=== PATIENT | female | born 1930 | race Caucasian/White ===

== ENCOUNTER 2019-02-20 14:06 | Inpatient (IN) ==
[2019-02-20] MEDS ORDERED: METOPROLOL TARTRATE 1 MG/ML VIAL IV STA (14:28)
--- NOTE | 2019-02-20 14:37 | Emergency Department Note ---
Entered by Janelle Randall acting as a scribe for History of Present Illness General Chief complaint: Chest Pain Stated complaint: CHEST PAIN Time Seen by Provider: 02/20/19 14:10 History of Present Illness Provider complaint: chest pain Onset (ago): hour(s) 8 Location: chest, left and right Radiation: non-radiation Pain Consistency: + now resolved Maximum Pain Intensity: 0 Associated symptoms: + denies other symptoms (lightheaded, dizzy) and + other (pain woke her up from sleep, pain is shooting between her anterior bilateral shoulders, lasted for 1 hour, pain has not returned since); no shortness of breath Treatments prior to arrival: none The patient is an 88 year old female who presents to the ED with now resolved chest pain that occurred 8 hours ago. The patient states that the pain woke her up from her sleep at 0630 this morning. The patient states that her pain is shooting between her anterior bilateral shoulders. The patient notes that the pain is non-radiating. The patient states that this pain lasted for approximately 1 hour. The patient states that the pain went away on its own and she denies taking any medication. The patient also denies feeling lightheaded, dizzy and short of breath during this episode. The patient states that she has been relaxing ever since this episode and the pain never returned. Home Medications Home Medications Medication Instructions Recorded Confirmed Type allopurinol 300 mg PO QAM 02/20/19 02/20/19 History apixaban [Eliquis] 2.5 mg PO BID 02/20/19 02/20/19 History calcitriol 0.25 mcg PO 3XWK 02/20/19 02/20/19 History digoxin 125 mcg PO QAM 02/20/19 02/20/19 History furosemide 20 mg PO QAM 02/20/19 02/20/19 History hydrochlorothiazide 25 mg PO QAM 02/20/19 02/20/19 History hydrocodone-acetaminophen 1 tab PO Q6H PRN 02/20/19 02/20/19 History ibuprofen [Motrin IB] 200 mg PO Q6H PRN 02/20/19 02/20/19 History metoprolol succinate 25 mg PO HS 02/20/19 02/20/19 History potassium chloride 20 meq PO 3XWK 02/20/19 02/20/19 History Allergies Allergy/AdvReac Type Severity Reaction Status Date / Time atorvastatin Allergy Unknown makes arms Verified 02/20/19 14:49 and shoulders hurt Past Med/Surg History Medical History (Updated 02/20/19 @ 15:34 by Janelle Randall) Atrial fibrillation (Chronic) CKD (chronic kidney disease) stage 4, GFR 15-29 ml/min (Chronic) Dyslipidemia (Chronic) GERD (gastroesophageal reflux disease) (Chronic) Gout (Chronic) Hip hematoma, right (Acute) History of DVT of lower extremity (Chronic) Hypertension (Chronic) Inguinal hernia (Chronic) Lymphedema of both lower extremities (Acute) Osteoarthritis (Chronic) Shoulder pain, right (Acute) Venous insufficiency (Chronic) Surgical History (Updated 02/20/19 @ 14:15 by Janelle Randall) S/P cataract surgery (Chronic) "bilateral" S/P ear surgery (Chronic) S/P inguinal hernia repair (Chronic) Social History Feels Safe at Home: Yes Smoking Status: Never smoker Review of Systems See HPI for pertinent positives & negatives. and A total of 10 systems reviewed and were otherwise negative Physical Exam Vital Signs Vital Signs - 24 hr 02/20/19 14:08 02/20/19 14:20 02/20/19 14:23 Temperature 36.8 C Temperature Source Oral Pulse Rate 113 H 105 H 110 H Pulse Rate [Apical] Pulse Rate from SpO2 Sensor 109 H 101 H Respiratory Rate 18 19 18 Respiratory Depth Blood Pressure 163/79 H 177/121 H Blood Pressure [Left Arm] Blood Pressure Mean 107 133 Blood Pressure Mean [Left Arm] Pulse Oximetry 98 97 97 Oxygen Delivery Method Room Air Sepsis Recent Fever Within 48 Hours No Sepsis Action Taken by Nursing No Action Required 02/20/19 14:24 02/20/19 14:26 02/20/19 14:27 Temperature Temperature Source Pulse Rate 106 H Pulse Rate [Apical] 100 H Pulse Rate from SpO2 Sensor 115 H Respiratory Rate 20 20 Respiratory Depth Normal Blood Pressure 169/109 H Blood Pressure [Left Arm] 169/109 H Blood Pressure Mean 126 Blood Pressure Mean [Left Arm] 129 Pulse Oximetry 96 97 97 Oxygen Delivery Method Room Air Room Air Sepsis Recent Fever Within 48 Hours Sepsis Action Taken by Nursing 02/20/19 14:30 02/20/19 14:31 02/20/19 14:45 Temperature Temperature Source Pulse Rate 91 H 87 90 Pulse Rate [Apical] Pulse Rate from SpO2 Sensor 97 H 94 H 98 H Respiratory Rate 18 18 20 Respiratory Depth Blood Pressure 163/107 H Blood Pressure [Left Arm] Blood Pressure Mean 116 Blood Pressure Mean [Left Arm] Pulse Oximetry 98 96 Oxygen Delivery Method Sepsis Recent Fever Within 48 Hours Sepsis Action Taken by Nursing 02/20/19 14:50 02/20/19 14:51 02/20/19 15:00 Temperature Temperature Source Pulse Rate 67 71 Pulse Rate [Apical] 72 Pulse Rate from SpO2 Sensor 70 Respiratory Rate 20 22 19 Respiratory Depth Normal Blood Pressure 147/79 H Blood Pressure [Left Arm] 147/79 H Blood Pressure Mean 91 Blood Pressure Mean [Left Arm] 101 Pulse Oximetry 94 96 Oxygen Delivery Method Room Air Sepsis Recent Fever Within 48 Hours Sepsis Action Taken by Nursing 02/20/19 15:01 02/20/19 15:15 02/20/19 15:31 Temperature Temperature Source Pulse Rate 80 63 Pulse Rate [Apical] Pulse Rate from SpO2 Sensor Respiratory Rate 17 16 Respiratory Depth Blood Pressure 145/82 H Blood Pressure [Left Arm] 139/87 Blood Pressure Mean 94 Blood Pressure Mean [Left Arm] 104 Pulse Oximetry Oxygen Delivery Method Sepsis Recent Fever Within 48 Hours Sepsis Action Taken by Nursing CONSTITUTIONAL/VITAL SIGNS: Reviewed / noted above. GENERAL: Non-toxic in appearance. INTEGUMENTARY: Warm, dry, and [place]. HEAD: Normocephalic. EYES: without scleral icterus or trauma. ENT/OROPHARYNX: clear and moist. LYMPHADENOPATHY/NECK: Is supple without lymphadenopathy or meningismus. RESPIRATORY: Lungs clear and equal. CARDIOVASCULAR: Irregular rapid heart rate. GI/ABDOMEN: Soft and nontender. No organomegaly or pulsatile mass. No rebound or guarding. Normal bowel sounds. EXTREMITIES: Warm and well perfused. Chronic pedal edema. BACK: No CVA tenderness. NEUROLOGICAL: Intact without focal deficits. PSYCHIATRIC: normal affect. MUSCULOSKELETAL: Normally developed with good muscle tone. Course Course 1416: Past medical records reviewed. The patient was evaluated in room A03. A complete history and physical exam was performed. 1527: I discussed the patient's case with Dara Ramirez PA-C. She will accept the patient and evaluate her for further management. Consultations Consultation #1: I discussed the patient's case with Dara Ramirez PA-C. She will accept the patient and evaluate her for further management. Time: 15:27 Administered Medications Discontinued Medications Aspirin (Aspirin) 324 mg PO NOW STA Stop: 02/20/19 15:27 Last Admin: 02/20/19 15:30 Dose: 324 mg Documented by: [id number] Enoxaparin Sodium (Lovenox) 60 mg SQ NOW ONE Stop: 02/20/19 15:27 Last Admin: 02/20/19 15:33 Dose: Not Given Documented by: [id number] Metoprolol Tartrate (Lopressor) 5 mg IV NOW STA Stop: 02/20/19 14:29 Last Admin: 02/20/19 14:48 Dose: 5 mg Documented by: [id number] Medical Decision Making Differential Diagnosis Differential diagnosis: Etiologies such as shingles, musculoskeletal pain, pericarditis, myocarditis, cardiac ischemia, pericardial tamponade, pneumonia, pneumothorax, pleural effusion, hemothorax, pleurisy, aortic pathology, pulmonary embolism, intra- abdominal process, as well as others were considered. Medical Records Attestation: I reviewed the patient's medical records. Home Medications Current Medication List: was personally reviewed by me Laboratory Data Attestation: I reviewed the patient's lab results. Result diagrams: 02/20/19 14:35 02/20/19 14:35 Lab Results 02/20/19 02/20/19 02/20/19 Range/Units 14:35 14:35 14:35 WBC 6.53 (4.8-10.8) K/uL RBC 3.44 L (4.2-5.4) M/uL Hgb 10.9 L (12.0-16.0) g/dL Hct 33.8 L (37-47) % MCV 98.3 (80-100) fL MCH 31.7 (25-34) pg MCHC 32.2 (32-36) g/dL RDW Std Deviation 53.7 H (36.4-46.3) fL RDW Coeff of Luke 14.9 H (11.5-14.5) % Plt Count 294 (130-400) K/uL MPV 10.0 (7.4-10.4) fL Immature Gran % (Auto) 0.2 % Neut % (Auto) 59.4 % Lymph % (Auto) 30.8 % Louisa % (Auto) 8.1 % Eos % (Auto) 1.2 % Baso % (Auto) 0.3 % Immature Gran # (Auto) 0.01 (0.00-0.02) K/uL Neut # (Auto) 3.88 (1.4-6.5) K/uL Lymph # (Auto) 2.01 (1.2-3.4) K/uL Louisa # (Auto) 0.53 (0.11-0.59) K/uL Eos # (Auto) 0.08 (0-0.5) K/uL Baso # (Auto) 0.02 (0-0.2) K/uL Sodium 142 (136-145) mmol/L Potassium 3.5 (3.5-5.1) mmol/L Chloride 106 (98-107) mmol/L Carbon Dioxide 30 (21-32) mmol/L Anion Gap 6.0 (3-11) BUN 24 H (7-18) mg/dl Creatinine 1.37 H (0.6-1.2) mg/dl Est Cr Clr Drug Dosing 25.5 ml/min Est GFR ( Amer) 39.8 Est GFR (Non-Af Amer) 34.4 BUN/Creatinine Ratio 17.3 (10-20) Glucose 92 (70-99) mg/dl Calcium 10.1 (8.5-10.1) mg/dl Total Bilirubin 0.4 (0.2-1) mg/dl AST 28 (15-37) U/L ALT 19 (12-78) U/L Alkaline Phosphatase 104 (45-117) U/L Troponin I 2.560 H* (0-0.045) ng/ml Total Protein 7.3 (6.4-8.2) gm/dl Albumin 3.6 (3.4-5.0) gm/dl Globulin 3.7 (2.5-4.0) gm/dl Albumin/Globulin Ratio 1.0 (0.9-2) Lipase 130 (73-393) U/L Digoxin 1.5 (0.8-2.0) ng/ml Imaging Data Radiologist's Impression: Radiology results as stated below per my review and the radiologist's interpretation: SINGLE VIEW CHEST CLINICAL HISTORY: Atypical chest pain. FINDINGS: An AP, portable, upright chest radiograph is compared to study dated 12/21/2015. The examination is degraded by portable technique and patient rotation. The heart is enlarged. The pulmonary vasculature is noncongested. A large hiatal hernia is noted. Chronic interstitial thickening is similar to previous. Scarring/atelectasis is noted at the lung bases. No airspace consolidation or large pleural effusion is identified. No pneumothorax is seen. The skeletal structures are osteopenic. The bony thorax is grossly intact. Advanced arthritic change is present in both shoulders. Superior subluxation of the humeral heads suggest chronic rotator cuff injuries. Calcific tendinopathy is noted bilaterally. Degenerative change is seen in the thoracic spine. IMPRESSION: 1. Cardiomegaly with no acute cardiopulmonary abnormality. 2. Large hiatal hernia. Electronically signed by: Chaka Serrano M.D. 02/20/2019 2:41 PM ECG Data Attestation: I personally reviewed and interpreted this ECG as follows: Indication: + chest pain Rate (beats per minute): 98 Rhythm: + atrial flutter ECG ST segments: no ST elevation ECG Findings: no PACs and no PVCs Blood Pressure Blood Pressure Findings: Elevated blood pressure Blood Pressure Disposition: further management by hospitalist FARHAT Narrative This is an 88-year-old female who presents to the ED with a chief complaint of a steady severe pain that went from shoulder to shoulder across the anterior chest at 630 this morning. She states that it awoke her from sleep. She states that it lasted for about an hour or so. Did not radiate into the back. She denied any associated symptoms like nausea, vomiting, diaphoresis, shortness of breath, lightheadedness or palpitations. She did not do anything for the symptoms but it resolved spontaneously. Her family was made aware and they brought her in for evaluation. She is currently having no symptoms. She does have a history of A. fib. She is reportedly on Xarelto. The patient has a slightly rapid and irregular heart rate ranging from 100-130. A twelve-lead EKG shows atrial flutter with variable conduction at rate of [address] elevation or ectopy. The patient's troponin came up elevated 2.5. Chest x-ray was negative for acute disease. BUN is 24 and creatinine is 1.37. CBC is unremarkable. The patient was given 5 mg of Lopressor IV. She will be treated with aspirin p.o. she is currently on Eliquis. I spoke with the hospitalist, who will see the patient for further inpatient evaluation and care. Impression & Plan Non-ST elevation VA (NSTEMI) Discharge Plan Visit Data Chief Complaint: Chest Pain Stated Complaint: CHEST PAIN ED Provider: Shemar Bourne Discharge Problem: Non-ST elevation VA (NSTEMI) Patient Disposition: Being Evaluated by Hospitalist Forms Stand Alone Forms: [facility] Prescriptions Prescriptions: No Action hydrocodone-acetaminophen 10-325 mg tablet 1 tab PO Q6H PRN (Reason: Pain) RF: 0 potassium chloride 20 mEq tablet,ER particles/crystals 20 meq PO 3XWK RF: 0 ibuprofen [Motrin IB] 200 mg Tablet 200 mg PO Q6H PRN (Reason: Pain) RF: 0 allopurinol 300 mg tablet 300 mg PO QAM RF: 0 hydrochlorothiazide 25 mg tablet 25 mg PO QAM RF: 0 digoxin 125 mcg (0.125 mg) tablet 125 mcg PO QAM RF: 0 furosemide 20 mg tablet 20 mg PO QAM RF: 0 metoprolol succinate 25 mg tablet extended release 24 hr 25 mg PO HS RF: 0 calcitriol 0.25 mcg capsule 0.25 mcg PO 3XWK RF: 0 Eliquis 2.5 mg tablet 2.5 mg PO BID RF: 0 Referrals Referrals: Jhony Littlejohn MD [Primary Care Provider] - The scribe's documentation has been prepared under my direction and personally reviewed by me in its entirety. I confirm that the note above accurately reflects all work, treatment, procedures, and medical decision making performed by me.
--- NOTE | 2019-02-20 14:42 | XRay Report ---
SINGLE VIEW CHEST CLINICAL HISTORY: Atypical chest pain. FINDINGS: An AP, portable, upright chest radiograph is compared to study dated 12/21/2015. The examina tion is degraded by portable technique and patient rotation. The heart is enlarged. The pulmonary vas culature is noncongested. A large hiatal hernia is noted. Chronic interstitial thickening is similar to previous. Scarring/atelectasis is noted at the lung bases. No airspace consolidation or large pleu ral effusion is identified. No pneumothorax is seen. The skeletal structures are osteopenic. The bony thorax is grossly intact. Advanced arthritic change is present in both shoulders. Superior subluxati on of the humeral heads suggest chronic rotator cuff injuries. Calcific tendinopathy is noted bilater ally. Degenerative change is seen in the thoracic spine. IMPRESSION: 1. Cardiomegaly with no acute cardiopulmonary abnormality. 2. Large hiatal hernia. Electronically signed by: Chaka Serrano M.D. 02/20/2019 2:41 PM
[2019-02-20 14:50] LABS: Basophils # (auto) 0.02 K/uL (0-0.2); Basophils % (auto) 0.3 %; Eosinophils # (auto) 0.08 K/uL (0-0.5); Eosinophils % (auto) 1.2 %; Hematocrit (blood only) 33.8 % (37-47); Hemoglobin 10.9 g/dL (12.0-16.0); Immature Granulocytes # (auto) 0.01 K/uL (0.00-0.02); Immature Granulocytes % (auto) 0.2 %; Lymphocytes # (auto) 2.01 K/uL (1.2-3.4); Lymphocytes % (auto) 30.8 %; Mean Corpuscular Hemoglobin 31.7 pg (25-34); Mean Corpuscular Hgb Conc 32.2 g/dL (32-36); Mean Corpuscular Volume 98.3 fL (80-100); Monocytes # (auto) 0.53 K/uL (0.11-0.59); Monocytes % (auto) 8.1 %; Neutrophils # (auto) 3.88 K/uL (1.4-6.5); Neutrophils % (auto) 59.4 %; Platelet Count 294 K/uL (130-400); RDW Coefficient of Variation 14.9 % (11.5-14.5); RDW Standard Deviation 53.7 fL (36.4-46.3); Red Blood Count 3.44 M/uL (4.2-5.4); White Blood Count 6.53 K/uL (4.8-10.8)
[2019-02-20 15:06] LABS: Albumin Level 3.6 gm/dl (3.4-5.0); BUN Creatinine Ratio 17.3 (10-20); Calcium 10.1 mg/dl (8.5-10.1); Creatinine Clr Calc Pharmacy 25.5 ml/min; Est GFR (African American) 39.8; Est GFR (Non-African American) 34.4; Potassium 3.5 mmol/L (3.5-5.1)
[2019-02-20 15:14] LABS: Bilirubin,Total 0.4 mg/dl (0.2-1); Globulin 3.7 gm/dl (2.5-4.0); Total Protein 7.3 gm/dl (6.4-8.2); Troponin I 2.56 ng/ml (0-0.045)
[2019-02-20] MEDS ORDERED: ASPIRIN CHEW 324 MG PO STA (15:26)
[2019-02-20] MEDS ORDERED: ENOXAPARIN INJ 60 MG/0.6 ML SYR SQ ONE (15:26)
[2019-02-20] MEDS ORDERED: Heparin IV Standard *NO* Bolus IV ONE (16:13)
--- NOTE | 2019-02-20 16:39 | History & Physical Report ---
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 In ED patient was significantly hypertensive with BP 169/109, tachycardic with heart rate 113, but otherwise hemodynamically stable. ECG revealed atrial flutter with variable AV block with nonspecific st wave changes. Initial troponin 2.5, stable H&H 10.9 and 33.8, platelet 294, BUN 24, creatinine 1.37, dig 1.5. Chest x-ray revealed large hiatal hernia but no cardiopulmonary abnormality. In ED she received ASA 325. Admit to PCU Stop Eliquis and start on IV heparin gtt cardiology consulted - spoke with Dr. Leggett obtain echocardiogram cycle troponin and ecg restart metoprolol tartrate 12.5mg bid lipid panel, a1c in a.m. (2) Atrial fibrillation: Patient with chronic rate controlled atrial fibrillation asymptomatic Presented with a flutter RVR Rates improved with Lopressor IV 5 mg Dig level WNL Continue digoxin Restart metoprolol at low-dose 12.5 mg twice daily Repeat ECG Cardiology consulted (3) Hypertension: Blood pressure now improved to 139/87 Hold HCTZ/Lasix for now Consider Nitropaste if BP elevates recently JUAN A d/c due to increase Cr and hyperkalemia (4) CKD (chronic kidney disease) stage 4, GFR 15-29 ml/min: baseline cr 1.5 bun/cr 24/1.37 avoid nephrotoxic agents, including NSAIDS monitor (5) Dyslipidemia: Continue statin Fasting lipid panel in a.m. (6) Gout: Continue allopurinol Patient with gouty arthropathy (7) Lymphedema of both lower extremities: Significant lower extremity lymphedema Teds, SCDs (8) DVT prophylaxis: IV heparin SCD/teds Disposition: Admit to PCU Follow-up: PCP Dr. Littlejohn upon discharge Patient was seen and examined in collaboration with Dr. 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 Son, [id number] and granddaughter are at bedside. She was awoken from sleep with stabbing substernal and left-sided chest pain, nonradiating, nothing made better, nothing made worse, /, never had anything like this in the past, "if it got any worse was going to jump out the window." "I think I had a heart attack." She denies any recent illness. Denies any associated shortness of breath, palpitations, diaphoresis or nausea. She denies any dizziness, lightheaded, syncope, hemoptysis, nausea, vomiting, diarrhea, change in her bowel or urinary habits. She does have chronic lower extremity lymphedema which she feels currently is worse. Normally her left lower extremity is worse than the right lower extremity; however, currently it is the opposite. She does have pain in her lower extremity secondary to arthritis which makes ambulating difficult. She does live at home alone. Denies any smoking or alcohol use. Occasional use of NSAIDs for pain relief. Family elicits she is a poor eater. Has had significant weight loss over the past 6 months to 1 year. Because of this and her weight loss her blood pressure has been running on the lower side and some medications have been discontinued. Recently seen by nephrology and her lisinopril and potassium segments were discontinued secondary to increased renal function and potassium. In ED patient was significantly hypertensive with BP 169/109, tachycardic with heart rate 113, but otherwise hemodynamically stable. ECG revealed atrial flutter with variable AV block with nonspecific st wave changes. Initial troponin 2.5, stable H&H 10.9 and 33.8, platelet 294, BUN 24, creatinine 1.37, dig 1.5. Chest x-ray revealed large hiatal hernia but no cardiopulmonary abnormality. In ED she received ASA 325. Allergies Allergy/AdvReac Type Severity Reaction Status Date / Time atorvastatin Allergy Unknown makes arms Verified 02/20/19 14:49 and shoulders hurt Home Medications Home Medications Medication Instructions Recorded Confirmed Type allopurinol 300 mg PO QAM 02/20/19 02/20/19 History apixaban [Eliquis] 2.5 mg PO BID 02/20/19 02/20/19 History calcitriol 0.25 mcg PO 3XWK 02/20/19 02/20/19 History digoxin 125 mcg PO QAM 02/20/19 02/20/19 History furosemide 20 mg PO QAM 02/20/19 02/20/19 History hydrochlorothiazide 25 mg PO QAM 02/20/19 02/20/19 History hydrocodone-acetaminophen 1 tab PO Q6H PRN 02/20/19 02/20/19 History ibuprofen [Motrin IB] 200 mg PO Q6H PRN 02/20/19 02/20/19 History Past Med/Surg History Social History Preferred Language: Cymraes Communication Ability: Effective Receiving Barn Custodian Required: No Beliefs That Will Affect Care: None Current Living Situation: Alone Other Information That Helps Us Care for You: No Feels Safe at Home: Yes Safety Concerns: Feels Safe At This Time Smoking Status: Never smoker Hx Alcohol Use: Yes Alcohol type: wine Hx Substance Use: No Review of Systems Review of Systems: All systems reviewed & are unremarkable except as noted in HPI & below Physical Exam Physical Exam: Constitutional: WD/WN, elderly, female vitals as above, NAD, sitting up in bed, pleasant, conversing easily Head: Normocephalic, Atraumatic Eyes: PERRL, conjunctivae normal, anicteric sclerae ENMT: external ear and nose normal, oropharynx normal Neck: trachea midline, no thyromegaly normal visual inspection Respiratory: normal respiratory effort, lungs clear to auscultation, no wheeze, rales, rhonchi. Normal insp/exp effort, no accessory muscle use Cardiovascular: Regular rate, irregular rhythm, no murmur, bilateral significant lymphedema, no erythema, warmth, negative Homans sign Vessels: no JVD or carotid bruit Chest: normal inspection of chest Abdomen: normal bowel sounds, soft, nontender, no hepatosplenomegaly Musculoskeletal: no cyanosis or clubbing, extremities motor strength 5/5 Skin: no rashes, warm and dry normal turgor Neurologic: PERRL, EOMI, accommodation nl, no face palsy, no dysarthria CN's II-XI intact bilaterally and moves all extremities Psychiatric: A+Ox3, euthymic affect Lymphatic: no cervical or axillary lymphadenopathy : deferred Results & Data Vital Signs (Past 12 Hours) Vital Signs Temp Pulse Pulse Resp BP BP Pulse Ox 02/20/19 15:31 139/87 02/20/19 15:15 63 16 02/20/19 15:01 80 17 145/82 H 02/20/19 15:00 71 19 02/20/19 14:51 72 22 147/79 H 96 02/20/19 14:50 67 20 147/79 H 94 02/20/19 14:45 90 20 96 02/20/19 14:31 87 18 98 02/20/19 14:30 91 H 18 163/107 H 02/20/19 14:27 97 02/20/19 14:26 100 H 20 169/109 H 97 02/20/19 14:24 106 H 20 169/109 H 96 02/20/19 14:23 110 H 18 97 02/20/19 14:20 105 H 19 177/121 H 97 02/20/19 14:08 36.8 C 113 H 18 163/79 H 98 Laboratory Results Short CBC 02/20/19 Range/Units 14:35 WBC 6.53 (4.8-10.8) K/uL Hgb 10.9 L (12.0-16.0) g/dL Hct 33.8 L (37-47) % Plt Count 294 (130-400) K/uL BMP 02/20/19 14:35 Sodium 142 Potassium 3.5 Chloride 106 Carbon Dioxide 30 BUN 24 H Creatinine 1.37 H Glucose 92 Calcium 10.1 Cardiac Enzymes 02/20/19 Range/Units 14:35 Troponin I 2.560 H* (0-0.045) ng/ml Liver Function 02/20/19 Range/Units 14:35 Total Bilirubin 0.4 (0.2-1) mg/dl AST 28 (15-37) U/L ALT 19 (12-78) U/L Alkaline Phosphatase 104 (45-117) U/L Albumin 3.6 (3.4-5.0) gm/dl Diagnostic Findings CXR:IMPRESSION: 1. Cardiomegaly with no acute cardiopulmonary abnormality. 2. Large hiatal hernia. Medications Administered Discontinued Medications Aspirin (Aspirin) 324 mg PO NOW STA Stop: 02/20/19 15:27 Last Admin: 02/20/19 15:30 Dose: 324 mg Documented by: [id number] Enoxaparin Sodium (Lovenox) 60 mg SQ NOW ONE Stop: 02/20/19 15:27 Last Admin: 02/20/19 15:33 Dose: Not Given Documented by: [id number] Metoprolol Tartrate (Lopressor) 5 mg IV NOW STA Stop: 02/20/19 14:29 Last Admin: 02/20/19 14:48 Dose: 5 mg Documented by: [id number] ECG Rate (beats per minute): 98 Rhythm: atrial flutter Findings: + nonspecific-ST abn Code Status & VTE Plan Code Status Full Code VTE Prophylaxis Plan VTE Prophylaxis will be ordered: Yes Supervising Physician Co-Signing Physician Notes Patient is an 88-year-old female with history of CKD 4, atrial fibrillation hyperparathyroidism and other problems presents with history of substernal chest pain, nonradiating, no aggravating or relieving factors. Please review HPI for complete details of presentation. On presentation, patient was noted to have hypertensive urgency, atrial flutter with RVR, elevated troponin 2.5. TSH, digoxin levels within normal limits. On exam patient is moderately built and nourished, no apparent distress, normocephalic atraumatic, lungs are clear to auscultation, irregularly irregular rhythm, no murmur, abdomen soft nontender, grossly no focal neurological deficits, bilateral lower extremity significant lymphedema. Patient is admitted for management of NSTEMI. Will hold Eliquis and start on IV heparin. Will start on low-dose metoprolol, trend troponin, check ECHO. Continue digoxin. Cardiology consulted. Received aspirin while in ED. Check lipid panel, A1c. N.p.o. after midnight. Currently heart rate is controlled, rhythm is A. fib. Anemia and CKD are at baseline. I personally reviewed the record. Patient is interviewed and examined at bedside. Patient's care is coordinated with Daniela Roa PA-C. Please refer to the documentation above for details of patient's presentation and for discussion of other issues.
[2019-02-20 17:05] LABS: Thyroid Stimulating Hormone 3.08 uIu/ml (0.300-4.500)
[2019-02-20] MEDS ORDERED: NITROGLYCERIN SL 0.4 MG/TAB TAB SL PRN (17:54)
[2019-02-20] MEDS ORDERED: ACETAMINOPHEN 325 MG TAB PO PRN (17:54)
[2019-02-20] MEDS ORDERED: ONDANSETRON INJ 2 MG/ML 2 ML VIAL IV PRN (17:54)
[2019-02-20] MEDS ORDERED: METOPROLOL TARTRATE 1 MG/ML VIAL IV PRN (17:54)
[2019-02-20 18:51] LABS: Prothrombin Time 10.5 Seconds (9.0-12.0)
[2019-02-20 19:26] LABS: Partial Thromboplastin Time 26.4 Seconds (21.0-31.0)
[2019-02-20] MEDS: HEPARIN SODIUM/DEXTROSE 25,000 UNITS/500 ML BAG IV SCH (19:40)
[2019-02-20] MEDS: METOPROLOL TARTRATE 25 MG TAB PO SCH (21:13)
[2019-02-21] MEDS: HYDROCODONE/ACETAMINOPHEN 10/325 TAB PO PRN ×3 (01:37→20:17)
[2019-02-21 02:41] LABS: INR 1.1 (0.9-1.1); Partial Thromboplastin Ratio 1.8; Prothrombin Time 10.8 Seconds (9.0-12.0)
[2019-02-21 02:42] LABS: Troponin I 2.46 ng/ml (0-0.045)
[2019-02-21 03:04] LABS: Partial Thromboplastin Time 49.1 Seconds (21.0-31.0)
[2019-02-21 06:03] LABS: Partial Thromboplastin Ratio 2.1
[2019-02-21 06:26] LABS: Partial Thromboplastin Time 56.8 Seconds (21.0-31.0)
[2019-02-21] MEDS: METOPROLOL TARTRATE 25 MG TAB PO SCH ×3 (08:17→20:11)
[2019-02-21] MEDS: ALLOPURINOL 300 MG TAB PO SCH (08:18)
--- NOTE | 2019-02-21 09:33 | Cardiology Consultation ---
Date of Consultation February 21, 2019 Assessment & Plan (1) CKD (chronic kidney disease) stage 4, GFR 15-29 ml/min: (2) Atrial fibrillation: (3) Troponin level elevated: (4) Non-ST elevation [place] (NSTEMI): The patient is currently comfortable. She had chest pain for approximately an hour which spontaneously resolved. Her initial cardiac troponins were elevated and have not really risen or declined. She does have chronic renal insufficiency which could be contributing to the elevation in troponin. At this point I believe we are either dealing with a type II elevation of troponin versus a non-STEMI. I would continue her on heparin. I have added aspirin 81 mg daily. I believe a conservative approach to this patient is indicated. Continue the metoprolol at the present dosage. She has chronic atrial fibrillation/flutter. History of Present Illness Attending Physician: Dunia Delarosa MD History of Present Illness This is an 88-year-old elderly female who usually follows with Dr. Valenzuela with a history of chronic atrial fibrillation. She was last seen in March at which time she was doing well. Yesterday she was in her usual state of health and went to move from her recliner. She noticed chest discomfort that started in the right side and radiated over to her left that lasted for approximately an hour before spontaneously resolving. She came to the emergency department where she was noted to have elevated cardiac markers and has been admitted. Since admission she has had no additional chest pain. She does have chronic kidney disease stage IV and her biomarkers have remained consistently elevated pretty much at the same elevation and therefore may be influenced by her kidney disease. She denies shortness of breath. She has had no dizziness or lightheadedness. She is in atrial fibrillation/flutter with a controlled rate on the telemetry. Allergies Allergy/AdvReac Type Severity Reaction Status Date / Time atorvastatin Allergy Unknown makes arms Verified 02/20/19 14:49 and shoulders hurt Home Medications Home Medications Medication Instructions Recorded Confirmed Type allopurinol 300 mg PO QAM 02/20/19 02/20/19 History apixaban [Eliquis] 2.5 mg PO BID 02/20/19 02/20/19 History calcitriol 0.25 mcg PO 3XWK 02/20/19 02/20/19 History digoxin 125 mcg PO QAM 02/20/19 02/20/19 History furosemide 20 mg PO QAM 02/20/19 02/20/19 History hydrochlorothiazide 25 mg PO QAM 02/20/19 02/20/19 History hydrocodone-acetaminophen 1 tab PO Q6H PRN 02/20/19 02/20/19 History ibuprofen [Motrin IB] 200 mg PO Q6H PRN 02/20/19 02/20/19 History Patient History Medical History Atrial fibrillation (Chronic) CKD (chronic kidney disease) stage 4, GFR 15-29 ml/min (Chronic) Dyslipidemia (Chronic) GERD (gastroesophageal reflux disease) (Chronic) Gout (Chronic) History of DVT of lower extremity (Chronic) Hypertension (Chronic) Lymphedema of both lower extremities (Acute) Osteoarthritis (Chronic) Venous insufficiency (Chronic) Surgical History History of hip surgery S/P cataract surgery (Chronic) "bilateral" S/P ear surgery (Chronic) S/P inguinal hernia repair (Chronic) Family History Brother Hypertension Social History Preferred Language: Japanese Communication Ability: Effective Auto Rebuilder Required: No Beliefs That Will Affect Care: None Current Living Situation: Alone Other Information That Helps Us Care for You: No Feels Safe at Home: Yes Safety Concerns: Feels Safe At This Time Smoking Status: Never smoker Hx Alcohol Use: Yes Alcohol type: wine Hx Substance Use: No Review of Systems Review of Systems: All systems reviewed & are unremarkable except as noted in HPI & below Nothing additional to add Physical Exam Physical Exam: General: no acute distress and stated age Head: normocephalic, no masses, lesions, tenderness or abnormalities Eyes: conjunctiva are pink and non-injected, sclera clear Neck: supple, no adenopathy, no bruits, normal jugular venous pulse, no hepatojugular reflux Chest: normal shape and normal respiratory effort Lungs: clear to auscultation and percussion Cardiac Exam: - irregular rate & rhythm, no murmurs gallops or rubs - normal S1, normal S2 Pulses: 2(+) throughout Abdomen: abdomen soft, non-tender, no abnormal masses and no hepatosplenomegaly Musculoskeletal: no gait disturbance, no joint inflammation, no deforming arthritis Extremities: no edema and no cyanosis Neuro: grossly normal exam Results & Data Vital Signs (Past 12 Hours) Vital Signs Temp Pulse Pulse Resp BP BP Pulse Ox 02/21/19 07:09 36.7 C 68 19 163/77 H 97 02/21/19 04:47 36.7 C 67 18 164/77 H 99 02/21/19 00:49 36.9 C 65 18 146/78 H 94 02/21/19 00:00 77 Laboratory Results Laboratory Results - last 24 hr 02/20/19 02/20/19 02/20/19 14:35 14:35 14:35 WBC 6.53 RBC 3.44 L Hgb 10.9 L Hct 33.8 L MCV 98.3 MCH 31.7 MCHC 32.2 RDW Std Deviation 53.7 H RDW Coeff of Luke 14.9 H Plt Count 294 MPV 10.0 Immature Gran % (Auto) 0.2 Neut % (Auto) 59.4 Lymph % (Auto) 30.8 [place] % (Auto) 8.1 Eos % (Auto) 1.2 Baso % (Auto) 0.3 Immature Gran # (Auto) 0.01 Neut # (Auto) 3.88 Lymph # (Auto) 2.01 [place] # (Auto) 0.53 Eos # (Auto) 0.08 Baso # (Auto) 0.02 PT INR APTT PTT Ratio Sodium 142 Potassium 3.5 Chloride 106 Carbon Dioxide 30 Anion Gap 6.0 BUN 24 H Creatinine 1.37 H Est Cr Clr Drug Dosing 25.5 Est GFR ( Amer) 39.8 Est GFR (Non-Af Amer) 34.4 BUN/Creatinine Ratio 17.3 Glucose 92 Estimat Average Glucose Hemoglobin A1c Calcium 10.1 Total Bilirubin 0.4 AST 28 ALT 19 Alkaline Phosphatase 104 Troponin I 2.560 H* Total Protein 7.3 Albumin 3.6 Globulin 3.7 Albumin/Globulin Ratio 1.0 Triglycerides Cholesterol LDL Cholesterol, Calc VLDL Cholesterol, Calc HDL Cholesterol Cholesterol/HDL Ratio Lipase 130 TSH 3.080 Digoxin 1.5 02/20/19 02/20/19 02/20/19 14:35 14:35 19:49 WBC RBC Hgb Hct MCV MCH MCHC RDW Std Deviation RDW Coeff of Luke Plt Count MPV Immature Gran % (Auto) Neut % (Auto) Lymph % (Auto) [place] % (Auto) Eos % (Auto) Baso % (Auto) Immature Gran # (Auto) Neut # (Auto) Lymph # (Auto) [place] # (Auto) Eos # (Auto) Baso # (Auto) PT 10.5 INR 1.0 APTT 26.4 PTT Ratio 1.0 Sodium Potassium Chloride Carbon Dioxide Anion Gap BUN Creatinine Est Cr Clr Drug Dosing Est GFR ( Amer) Est GFR (Non-Af Amer) BUN/Creatinine Ratio Glucose Estimat Average Glucose Hemoglobin A1c Calcium Total Bilirubin AST ALT Alkaline Phosphatase Troponin I 3.000 H* Total Protein Albumin Globulin Albumin/Globulin Ratio Triglycerides Cholesterol LDL Cholesterol, Calc VLDL Cholesterol, Calc HDL Cholesterol Cholesterol/HDL Ratio Lipase TSH Digoxin 02/21/19 02/21/19 02/21/19 01:48 01:48 05:24 WBC RBC Hgb Hct MCV MCH MCHC RDW Std Deviation RDW Coeff of Luke Plt Count MPV Immature Gran % (Auto) Neut % (Auto) Lymph % (Auto) [place] % (Auto) Eos % (Auto) Baso % (Auto) Immature Gran # (Auto) Neut # (Auto) Lymph # (Auto) [place] # (Auto) Eos # (Auto) Baso # (Auto) PT 10.8 INR 1.1 APTT 49.1 H* 56.8 H* PTT Ratio 1.8 2.1 Sodium Potassium Chloride Carbon Dioxide Anion Gap BUN Creatinine Est Cr Clr Drug Dosing Est GFR ( Amer) Est GFR (Non-Af Amer) BUN/Creatinine Ratio Glucose Estimat Average Glucose Hemoglobin A1c Calcium Total Bilirubin AST ALT Alkaline Phosphatase Troponin I 2.460 H* Total Protein Albumin Globulin Albumin/Globulin Ratio Triglycerides 120 Cholesterol 185 LDL Cholesterol, Calc 93 VLDL Cholesterol, Calc 24 HDL Cholesterol 68 Cholesterol/HDL Ratio 3 Lipase TSH Digoxin 02/21/19 05:24 WBC RBC Hgb Hct MCV MCH MCHC RDW Std Deviation RDW Coeff of Luke Plt Count MPV Immature Gran % (Auto) Neut % (Auto) Lymph % (Auto) [place] % (Auto) Eos % (Auto) Baso % (Auto) Immature Gran # (Auto) Neut # (Auto) Lymph # (Auto) [place] # (Auto) Eos # (Auto) Baso # (Auto) PT INR APTT PTT Ratio Sodium Potassium Chloride Carbon Dioxide Anion Gap BUN Creatinine Est Cr Clr Drug Dosing Est GFR ( Amer) Est GFR (Non-Af Amer) BUN/Creatinine Ratio Glucose Estimat Average Glucose Pending Hemoglobin A1c Pending Calcium Total Bilirubin AST ALT Alkaline Phosphatase Troponin I Total Protein Albumin Globulin Albumin/Globulin Ratio Triglycerides Cholesterol LDL Cholesterol, Calc VLDL Cholesterol, Calc HDL Cholesterol Cholesterol/HDL Ratio Lipase TSH Digoxin Medications Administered Current Inpatient Medications Acetaminophen (Tylenol) 650 mg PO Q4H PRN PRN Reason: Pain or Fever Stop: 03/22/19 17:53 Hydrocodone Bitart/Acetaminophen ([place] 10/325) 1 tab PO Q6H PRN PRN Reason: Pain Stop: 03/06/19 17:53 Last Admin: 02/21/19 01:37 Dose: 1 tab Documented by: Allopurinol (Zyloprim) 300 mg PO QAM [facility] Stop: 03/23/19 08:59 Last Admin: 02/21/19 08:18 Dose: 300 mg Documented by: Aspirin (Aspirin Chew) 81 mg PO DAILY [facility] Stop: 03/23/19 09:29 Calcitriol (Rocaltrol) 0.25 mcg PO MoWeFr@0900 [facility] Stop: 03/24/19 08:59 Digoxin (Lanoxin) 0.125 mg PO DAILY@1600 [facility] Stop: 03/23/19 15:59 Heparin Sodium/Dextrose (Heparin Sodium/Dextrose) 25,000 units in 500 mls @ 20 mls/hr IV .Q24H [facility]; Protocol Stop: 03/22/19 16:14 Last Titration: 02/20/19 23:13 Dose: 1,000 units/hr, 20 mls/hr Documented by: Metoprolol Tartrate (Lopressor) 12.5 mg PO BID [facility] Stop: 03/22/19 20:59 Last Admin: 02/21/19 08:17 Dose: Not Given Documented by: Metoprolol Tartrate (Lopressor) 5 mg IV Q6H PRN PRN Reason: Tachycardia Stop: 03/22/19 17:53 Nitroglycerin (Nitrostat) 0.4 mg SL UD PRN PRN Reason: Chest Pain Stop: 03/22/19 17:53 Ondansetron HCl (Zofran) 4 mg IV Q6H PRN PRN Reason: Nausea Stop: 03/22/19 17:53
[2019-02-21] MEDS: ASPIRIN 81 MG CHEW PO SCH (10:36)
[2019-02-21] MEDS: DIGOXIN 0.125 MG TAB PO SCH (16:00)
[2019-02-21] MEDS: HEPARIN SODIUM/DEXTROSE 25,000 UNITS/500 ML BAG IV SCH (16:02)
--- NOTE | 2019-02-21 16:21 | Hospitalist Progress Note ---
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 In ED patient was significantly hypertensive with BP 169/109, tachycardic with heart rate 113, but otherwise hemodynamically stable. ECG revealed atrial flutter with variable AV block with nonspecific st wave changes. Initial troponin 2.5, stable H&H 10.9 and 33.8, platelet 294, BUN 24, creatinine 1.37, dig 1.5. Chest x-ray revealed large hiatal hernia but no cardiopulmonary abnormality. Got ASA loading in ER Trop went from 2.5 to 3 to 2.4. Likely NSTEMI. Currently on heparin drip. Will continue this for now Continue lopressor for rate control. Will monitor troponin and kidney function as this may be contributing to elevated troponin (2) Atrial fibrillation: Patient with chronic rate controlled atrial fibrillation asymptomatic Presented with a flutter RVR Rates improved with Lopressor IV 5 mg Dig level WNL Continue digoxin Continue metoprolol at low-dose 12.5 mg twice daily and monitor BP with heart rate (with holding parameters) Heart rate has improved significantly. Now running on lower end will monitor Cardiology on board Eliquis on hold while on heparin drip (3) Hypertension: Continue to monitor BP Hold HCTZ/Lasix for now Recently ACEI discontinued due to increase Cr and hyperkalemia (4) CKD (chronic kidney disease) stage 4, GFR 15-29 ml/min: Baseline cr 1.5 Cr is 1.37 today Avoid nephrotoxic agents, including NSAIDS Monitor (5) Dyslipidemia: Continue statin (6) Gout: Continue allopurinol Patient with gouty arthropathy (7) Lymphedema of both lower extremities: Significant lower extremity lymphedema Teds, SCDs (8) DVT prophylaxis: IV heparin Subjective Patient seen and examined this morning. Has been chest pain free since after admission. Denied any shortness of breath, nausea, vomiting Denied any other symptoms Review of Systems Review of Systems: All systems reviewed and unremarkable except for mentioned above. Physical Exam Physical Exam: General: Elderly patient, no acute distress and not ill appearing Eyes: PERRL, conjunctivae normal, EOM intact bilaterally ENMT: External ear and nose normal, oropharynx normal Neck: Normal visual inspection, no tracheal deviation, no swelling noted Respiratory: Normal respiratory effort, no respiratory distress, lungs clear to auscultation, no crackles and no wheezes Cardiovascular: Pulse is irregular. Heart SoundsS1 S2; Extremities: no pedal edema Chest (Breasts): Chest: normal inspection of chest Gastrointestinal (Abdomen): Abdomen is not distended, soft, non-tender to palpation, no guarding, no palpable hepatosplenomegaly, normal bowel sounds Musculoskeletal: No cyanosis or clubbing, chronic lymphedema, nonpitting. Neurologic: Alert and oriented x 3, No focal weakness, sensation grossly intact Psychiatric: Alert and oriented x 3, euthymic affect, no depressed affect Results & Data Vital Signs (Past 12 Hours) Vital Signs Temp Pulse Pulse Resp BP BP Pulse Ox 02/21/19 16:00 50 L 02/21/19 15:11 36.7 C 72 18 124/69 95 02/21/19 10:57 37.1 C 75 19 162/80 H 96 02/21/19 08:00 43 L 02/21/19 07:09 36.7 C 68 19 163/77 H 97 02/21/19 04:47 36.7 C 67 18 164/77 H 99 Laboratory Results Laboratory Results - last 24 hr 02/20/19 02/20/19 02/20/19 14:35 14:35 14:35 PT 10.5 INR 1.0 APTT 26.4 PTT Ratio 1.0 Estimat Average Glucose Hemoglobin A1c Troponin I Triglycerides Cholesterol LDL Cholesterol, Calc VLDL Cholesterol, Calc HDL Cholesterol Cholesterol/HDL Ratio TSH 3.080 02/20/19 02/21/19 02/21/19 19:49 01:48 01:48 PT 10.8 INR 1.1 APTT 49.1 H* PTT Ratio 1.8 Estimat Average Glucose Hemoglobin A1c Troponin I 3.000 H* 2.460 H* Triglycerides 120 Cholesterol 185 LDL Cholesterol, Calc 93 VLDL Cholesterol, Calc 24 HDL Cholesterol 68 Cholesterol/HDL Ratio 3 TSH 02/21/19 02/21/19 05:24 05:24 PT INR APTT 56.8 H* PTT Ratio 2.1 Estimat Average Glucose Pending Hemoglobin A1c Pending Troponin I Triglycerides Cholesterol LDL Cholesterol, Calc VLDL Cholesterol, Calc HDL Cholesterol Cholesterol/HDL Ratio TSH
[2019-02-22 05:53] LABS: Hematocrit (blood only) 31.1 % (37-47); Hemoglobin 9.9 g/dL (12.0-16.0); Mean Corpuscular Hemoglobin 31.5 pg (25-34); Mean Corpuscular Hgb Conc 31.8 g/dL (32-36); Mean Platelet Volume 10.1 fL (7.4-10.4); Platelet Count 250 K/uL (130-400); RDW Coefficient of Variation 14.9 % (11.5-14.5); RDW Standard Deviation 53.3 fL (36.4-46.3); Red Blood Count 3.14 M/uL (4.2-5.4); White Blood Count 4.72 K/uL (4.8-10.8)
[2019-02-22 06:13] LABS: Partial Thromboplastin Ratio 2.2
[2019-02-22 06:23] LABS: Partial Thromboplastin Time 60.1 Seconds (21.0-31.0)
[2019-02-22 06:27] LABS: BUN Creatinine Ratio 18.5 (10-20); Calcium 9.4 mg/dl (8.5-10.1); Creatinine Clr Calc Pharmacy 21.2 ml/min; Est GFR (African American) 31.8; Est GFR (Non-African American) 27.4
[2019-02-22 07:30] LABS: Estimated Average Glucose 105 mg/dl; Hemoglobin A1C 5.3 % (4.5-5.6)
[2019-02-22] MEDS: METOPROLOL TARTRATE 25 MG TAB PO SCH ×2 (08:37→20:26)
[2019-02-22] MEDS: ASPIRIN 81 MG CHEW PO SCH (08:37)
[2019-02-22] MEDS: ALLOPURINOL 300 MG TAB PO SCH (08:37)
[2019-02-22] MEDS ORDERED: CALCITRIOL 0.25 MCG CAPSULE PO SCH (09:00)
--- NOTE | 2019-02-22 11:22 | Cardiology Progress Note ---
Date of Service February 22, 2019 Assessment & Plan (1) CKD (chronic kidney disease) stage 4, GFR 15-29 ml/min: (2) Atrial fibrillation: (3) Troponin level elevated: (4) Non-ST elevation [place] (NSTEMI): The patient has had no additional chest pain. Her echocardiogram indicates reduced LV function with an estimated left ventricular ejection fraction of around 35%. It also shows severe mitral regurgitation. In addition to her metoprolol I am going to add lisinopril 10 mg daily. She does have some renal insufficiency however, her creatinine has been stable and I believe she would benefit from this medication. We will check a BMP in the morning. Subjective The patient had an uneventful night. She has not had chest pain since her admission. She is being ambulated in the pérez with the help of nursing. Review of Systems Review of Systems: All systems reviewed & are unremarkable except as noted in HPI & below Nothing additional to add Physical Exam Physical Exam: General: no acute distress and stated age Head: normocephalic, no masses, lesions, tenderness or abnormalities Eyes: conjunctiva are pink and non-injected, sclera clear Neck: supple, no adenopathy, no bruits, normal jugular venous pulse, no hepatojugular reflux Chest: normal shape and normal respiratory effort Lungs: clear to auscultation and percussion Cardiac Exam: - regular rate & rhythm, no murmurs gallops or rubs - normal S1, normal S2 Pulses: 2(+) throughout Abdomen: abdomen soft, non-tender, no abnormal masses and no hepatosplenomegaly Musculoskeletal: no gait disturbance, no joint inflammation, no deforming arthritis Extremities: no edema and no cyanosis Neuro: grossly normal exam Results & Data Vital Signs (Past 12 Hours) Vital Signs Temp Pulse Pulse Pulse Resp BP BP 02/22/19 11:06 36.8 C 76 18 146/82 H 02/22/19 09:15 140 H 02/22/19 07:49 76 02/22/19 06:53 36.6 C 88 18 163/77 H 02/22/19 03:49 36.5 C 65 18 154/76 H Pulse Ox 02/22/19 11:06 95 02/22/19 09:15 02/22/19 07:49 02/22/19 06:53 97 02/22/19 03:49 98 Laboratory Results Laboratory Results - last 24 hr 02/21/19 02/22/19 02/22/19 05:24 05:39 05:39 WBC 4.72 L RBC 3.14 L Hgb 9.9 L Hct 31.1 L MCV 99.0 MCH 31.5 MCHC 31.8 L RDW Std Deviation 53.3 H RDW Coeff of Luke 14.9 H Plt Count 250 MPV 10.1 APTT 60.1 H* PTT Ratio 2.2 Sodium Potassium Chloride Carbon Dioxide Anion Gap BUN Creatinine Est Cr Clr Drug Dosing Est GFR ( Amer) Est GFR (Non-Af Amer) BUN/Creatinine Ratio Glucose Estimat Average Glucose 105 Hemoglobin A1c 5.3 Calcium 02/22/19 05:39 WBC RBC Hgb Hct MCV MCH MCHC RDW Std Deviation RDW Coeff of Luke Plt Count MPV APTT PTT Ratio Sodium 142 Potassium 4.0 Chloride 107 Carbon Dioxide 29 Anion Gap 6.0 BUN 31 H Creatinine 1.65 H Est Cr Clr Drug Dosing 21.2 Est GFR ( Amer) 31.8 Est GFR (Non-Af Amer) 27.4 BUN/Creatinine Ratio 18.5 Glucose 94 Estimat Average Glucose Hemoglobin A1c Calcium 9.4 Diagnostic Findings Echocardiogram indicates reduced LV function with an estimated left ventricular ejection fraction around 35%. Severe mitral regurgitation. Medications Administered Current Inpatient Medications Acetaminophen (Tylenol) 650 mg PO Q4H PRN PRN Reason: Pain or Fever Stop: 03/22/19 17:53 Hydrocodone Bitart/Acetaminophen ([place] 10/325) 1 tab PO Q6H PRN PRN Reason: Pain Stop: 03/06/19 17:53 Last Admin: 02/21/19 20:17 Dose: 1 tab Documented by: Allopurinol (Zyloprim) 300 mg PO QAM [facility] Stop: 03/23/19 08:59 Last Admin: 02/22/19 08:37 Dose: 300 mg Documented by: Aspirin (Aspirin Chew) 81 mg PO DAILY [facility] Stop: 03/23/19 09:29 Last Admin: 02/22/19 08:37 Dose: 81 mg Documented by: Calcitriol (Rocaltrol) 0.25 mcg PO MoWeFr@0900 [facility] Stop: 03/24/19 08:59 Last Admin: 02/22/19 08:37 Dose: 0.25 mcg Documented by: Digoxin (Lanoxin) 0.125 mg PO DAILY@1600 [facility] Stop: 03/23/19 15:59 Last Admin: 02/21/19 16:00 Dose: Not Given Documented by: Lisinopril (Zestril) 10 mg PO QAM [facility] Stop: 03/24/19 11:29 Metoprolol Tartrate (Lopressor) 12.5 mg PO BID [facility] Stop: 03/22/19 20:59 Last Admin: 02/22/19 08:37 Dose: 12.5 mg Documented by: Metoprolol Tartrate (Lopressor) 5 mg IV Q6H PRN PRN Reason: Tachycardia Stop: 03/22/19 17:53 Nitroglycerin (Nitrostat) 0.4 mg SL UD PRN PRN Reason: Chest Pain Stop: 03/22/19 17:53 Ondansetron HCl (Zofran) 4 mg IV Q6H PRN PRN Reason: Nausea Stop: 03/22/19 17:53
[2019-02-22] MEDS ORDERED: LISINOPRIL 10 MG TAB PO SCH (11:30)
[2019-02-22] MEDS: HYDROCODONE/ACETAMINOPHEN 10/325 TAB PO PRN (14:59)
[2019-02-22] MEDS: DIGOXIN 0.125 MG TAB PO SCH (15:00)
[2019-02-22] MEDS: DOCUSATE SODIUM/SENNA 50/8.6MG TAB PO SCH (15:25)
--- NOTE | 2019-02-22 17:05 | Hospitalist Progress Note ---
Date of Service February 22, 2019 Assessment & Plan (1) Non-ST elevation [place] (NSTEMI): In ED patient was significantly hypertensive with BP 169/109, tachycardic with heart rate 113, but otherwise hemodynamically stable. ECG revealed atrial flutter with variable AV block with nonspecific st wave changes. Initial troponin 2.5, stable H&H 10.9 and 33.8, platelet 294, BUN 24, creatinine 1.37, dig 1.5. Chest x-ray revealed large hiatal hernia but no cardiopulmonary abnormality. Got ASA loading in ER Trop went from 2.5 to 3 to 2.4. Likely NSTEMI. Has been chest pain free since admission Echo revealed reduced LV function 35-40%. Discussed with Computer Aided Drafter Off heparin drip (2) Atrial fibrillation: Patient with chronic rate controlled atrial fibrillation asymptomatic Presented with a flutter RVR Rates improved with Lopressor IV 5 mg Dig level WNL Continue digoxin and metoprolol EKG today still show Aflutter with variable block HR rate controlled Cardiology on board Resume home eliquis (3) Hypertension: Continue to monitor BP Continue to hold HCTZ/Lasix for now Recently ACEI discontinued due to increase Cr and hyperkalemia (4) CKD (chronic kidney disease) stage 4, GFR 15-29 ml/min: Baseline cr 1.5 Cr is 1.6 today Avoid nephrotoxic agents, including NSAIDS Monitor (5) Dyslipidemia: Continue statin (6) Gout: Continue allopurinol Patient with gouty arthropathy (7) Lymphedema of both lower extremities: Significant lower extremity lymphedema Teds, SCDs (8) DVT prophylaxis: eliquis Subjective Patient has no complaints today Review of Systems Review of Systems: All systems reviewed and unremarkable except for mentioned above. Physical Exam Physical Exam: General: Elderly patient, no acute distress and not ill appearing Eyes: PERRL, conjunctivae normal, EOM intact bilaterally ENMT: External ear and nose normal, oropharynx normal Neck: Normal visual inspection, no tracheal deviation, no swelling noted Respiratory: Normal respiratory effort, no respiratory distress, lungs clear to auscultation, no crackles and no wheezes Cardiovascular: Pulse is regular. Heart SoundsS1 S2; Extremities: no pedal edema Gastrointestinal (Abdomen): Abdomen is not distended, soft, non-tender to palpation, no guarding, no palpable hepatosplenomegaly, normal bowel sounds Musculoskeletal: No cyanosis or clubbing, chronic lymphedema, nonpitting. Neurologic: Alert and oriented x 3, No focal weakness, sensation grossly intact Results & Data Vital Signs (Past 12 Hours) Vital Signs Temp Pulse Pulse Pulse Resp BP BP 02/22/19 15:14 75 02/22/19 15:06 36.7 C 71 20 146/77 H 02/22/19 15:00 75 02/22/19 11:30 134 H 02/22/19 11:06 36.8 C 76 18 146/82 H 02/22/19 09:15 140 H 02/22/19 07:49 76 02/22/19 06:53 36.6 C 88 18 163/77 H Pulse Ox 02/22/19 15:14 02/22/19 15:06 97 02/22/19 15:00 02/22/19 11:30 02/22/19 11:06 95 02/22/19 09:15 02/22/19 07:49 02/22/19 06:53 97 Laboratory Results Abnormal lab results 02/22/19 02/22/19 02/22/19 Range/Units 05:39 05:39 05:39 WBC 4.72 L (4.8-10.8) K/uL RBC 3.14 L (4.2-5.4) M/uL Hgb 9.9 L (12.0-16.0) g/dL Hct 31.1 L (37-47) % MCHC 31.8 L (32-36) g/dL RDW Std Deviation 53.3 H (36.4-46.3) fL RDW Coeff of Luke 14.9 H (11.5-14.5) % APTT 60.1 H* (21.0-31.0) Seconds BUN 31 H (7-18) mg/dl Creatinine 1.65 H (0.6-1.2) mg/dl
[2019-02-22] MEDS: APIXABAN 2.5 MG TAB PO SCH (20:26)
[2019-02-23] MEDS: HYDROCODONE/ACETAMINOPHEN 10/325 TAB PO PRN ×3 (01:06→21:22)
[2019-02-23 07:20] LABS: BUN Creatinine Ratio 18.3 (10-20); Calcium 9.7 mg/dl (8.5-10.1); Creatinine Clr Calc Pharmacy 20.3 ml/min; Est GFR (African American) 30.2; Est GFR (Non-African American) 26.1; Potassium 4.2 mmol/L (3.5-5.1)
[2019-02-23] MEDS: APIXABAN 2.5 MG TAB PO SCH ×2 (08:11→21:20)
[2019-02-23] MEDS: ALLOPURINOL 300 MG TAB PO SCH (08:11)
[2019-02-23] MEDS: METOPROLOL TARTRATE 25 MG TAB PO SCH ×2 (08:11→21:19)
[2019-02-23] MEDS: ASPIRIN 81 MG CHEW PO SCH (08:12)
[2019-02-23] MEDS: DOCUSATE SODIUM/SENNA 50/8.6MG TAB PO SCH (08:12)
[2019-02-23] MEDS ORDERED: SODIUM CHLORIDE 0.9% 1000ML 1,000 ML IV SCH (08:30)
--- NOTE | 2019-02-23 11:15 | Cardiology Progress Note ---
Date of Service February 23, 2019 Assessment & Plan (1) Non-ST elevation CA (NSTEMI): (2) CKD (chronic kidney disease) stage 4, GFR 15-29 ml/min: (3) Mitral regurgitation: (4) Atrial fibrillation: 88-year-old female with a history of chronic atrial fibrillation/atrial flutter presented with symptoms consistent with angina that lasted 1 hour. Presentation is compatible with a non-ST segment elevation myocardial infarction, troponin peaked at 3 NG per mL, and trended down to 2.46. Most recent EKG performed yesterday 02/22/2018 revealed interval development of deep T wave inversions in the anterior and lateral precordial leads, inferior T wave changes, the anterior and lateral precordial T wave changes are new and much more prominent than the previous baseline EKG. Echocardiogram reveals moderate LV systolic dysfunction with LVEF in the range of 35 to 40%, severe MR, moderate aortic regurgitation. Stage IV chronic kidney disease, calculated GFR 26 mL/min/m. Rhythm is stable. Hemodynamics are stable. She has no ongoing angina. Fine status is stable. Continue ongoing medication therapy with aspirin 81 mg daily, metoprolol 12.5 mg twice daily, which can be transition to metoprolol succinate 25 mg daily at discharge. Lisinopril 10 mg daily Digoxin 0.25 mg p.o. daily. Continue current hospital treatment with Eliquis 2.5 mg twice daily dose adjusted for renal function and age. Patient stable for discharge from a cardiac perspective if she is able to get up and ambulate to be able to perform her activities of daily living. Will need outpt cardilogy follow up in 2-3 weeks with me or cardiology PA. Subjective Chief complaint: Follow-up chest pain Subjective: Patient sitting the bedside chair. She is feeling well. She denies chest discomfort, shortness of breath, or palpitations. Telemetry reveals rate controlled atrial fibrillation in the range of 60 to 70 bpm. Review of Systems Review of Systems: All systems reviewed & are unremarkable except as noted in HPI & below Physical Exam Physical Exam: Temp Pulse Resp BP Pulse Ox 36.6 C 60 20 147/84 H 95 02/23/19 07:12 02/23/19 07:12 02/23/19 07:12 02/23/19 07:12 02/23/19 07:12 Constitutional: WD/WN, vitals as above Respiratory: normal respiratory effort, lungs clear to auscultation Cardiovascular: Rate/Rhythm: + irregularly irregular Heart Sounds: + murmur (I/ systolic murmur) Vessels: no JVD Extremities: no edema Gastrointestinal (Abdomen): normal bowel sounds, soft, nontender, no hepatosplenomegaly Neurologic: PERRL, EOMI, accommodation nl, no face palsy, no dysarthria Results & Data Vital Signs (Past 12 Hours) Vital Signs Temp Pulse Resp BP BP Pulse Ox 02/23/19 07:12 36.6 C 60 20 147/84 H 95 02/23/19 03:55 36.7 C 62 18 151/68 H 95 Laboratory Results Comprehensive Metabolic Panel 02/23/19 Range/Units 06:10 Sodium 141 (136-145) mmol/L Potassium 4.2 (3.5-5.1) mmol/L Chloride 108 H (98-107) mmol/L Carbon Dioxide 29 (21-32) mmol/L BUN 31 H (7-18) mg/dl Creatinine 1.72 H (0.6-1.2) mg/dl Glucose 91 (70-99) mg/dl Calcium 9.7 (8.5-10.1) mg/dl Intake and Output 02/22/19 02/23/19 02/23/19 22:59 06:59 14:59 Intake Total 275 / 1225.000 400 / 1225.000 Output Total 250 / 1175 725 / 1175 Balance 25 / 50.000 -325 / 50.000 Intake: Oral 275 / 1125 400 / 1125 Output: Urine 250 / 1175 725 / 1175 Other: # Unmeasured Voids 1 Weight 63.5 kg
--- NOTE | 2019-02-23 14:41 | Hospitalist Progress Note ---
Date of Service February 23, 2019 Assessment & Plan (1) Non-ST elevation [place] (NSTEMI): In ED patient was significantly hypertensive with BP 169/109, tachycardic with heart rate 113, but otherwise hemodynamically stable. ECG revealed atrial flutter with variable AV block with nonspecific st wave changes. Initial troponin 2.5, stable H&H 10.9 and 33.8, platelet 294, BUN 24, creatinine 1.37, dig 1.5. Chest x-ray revealed large hiatal hernia but no cardiopulmonary abnormality. Got ASA loading in ER Trop went from 2.5 to 3 to 2.4. Likely NSTEMI. Has been chest pain free since admission Echo revealed reduced LV function 35-40%. Off heparin drip Recently ACEI was reported to have been discontinued due to increase Cr and hyperkalemia (2) Atrial fibrillation: Patient with chronic rate controlled atrial fibrillation asymptomatic Presented with a flutter RVR Rates improved with Lopressor IV 5 mg Dig level WNL Continue digoxin and metoprolol EKG today still show Aflutter with variable block HR rate controlled Continue eliquis (3) Hypertension: Controlled Continue to monitor BP Continue to hold HCTZ/Lasix for now due rising creatinine Recently ACEI was reported to have been discontinued due to increase Cr and hyperkalemia (4) KERON (acute kidney injury): (5) CKD (chronic kidney disease) stage 4, GFR 15-29 ml/min: Baseline cr 1.4-1.5 Cr is 1.72 today. Has been increasing from 1.37 on admission Will do gentle IVF and monitor Avoid nephrotoxic agents, including NSAIDS Monitor (6) Dyslipidemia: Continue statin (7) Gout: Continue allopurinol Patient with gouty arthropathy (8) Lymphedema of both lower extremities: Significant lower extremity lymphedema Teds, SCDs (9) DVT prophylaxis: eliquis Subjective Patient seen and examined Has no complaints today Review of Systems Review of Systems: All systems reviewed and unremarkable except for mentioned above. Physical Exam Physical Exam: General: Elderly patient, no acute distress and not ill appearing Eyes: PERRL, conjunctivae normal, EOM intact bilaterally ENMT: External ear and nose normal, oropharynx normal Neck: Normal visual inspection, no tracheal deviation, no swelling noted Respiratory: Normal respiratory effort, no respiratory distress, lungs clear to auscultation, no crackles and no wheezes Cardiovascular: Pulse is regular. Heart SoundsS1 S2; Extremities: no pedal edema Gastrointestinal (Abdomen): Abdomen is not distended, soft, non-tender to palpation, no guarding, no palpable hepatosplenomegaly, normal bowel sounds Musculoskeletal: No cyanosis or clubbing, chronic lymphedema, nonpitting. Neurologic: Alert and oriented x 3, No focal weakness, sensation grossly intact Results & Data Vital Signs (Past 12 Hours) Vital Signs Temp Pulse Resp BP BP Pulse Ox 02/23/19 11:47 36.5 C 61 18 132/69 95 02/23/19 07:12 36.6 C 60 20 147/84 H 95 02/23/19 03:55 36.7 C 62 18 151/68 H 95 Laboratory Results Abnormal lab results 02/23/19 Range/Units 06:10 Chloride 108 H (98-107) mmol/L BUN 31 H (7-18) mg/dl Creatinine 1.72 H (0.6-1.2) mg/dl Laboratory Results - last 24 hr 02/23/19 06:10 Sodium 141 Potassium 4.2 Chloride 108 H Carbon Dioxide 29 Anion Gap 4.0 BUN 31 H Creatinine 1.72 H Est Cr Clr Drug Dosing 20.3 Est GFR ( Amer) 30.2 Est GFR (Non-Af Amer) 26.1 BUN/Creatinine Ratio 18.3 Glucose 91 Calcium 9.7
[2019-02-23] MEDS: DIGOXIN 0.125 MG TAB PO SCH (17:00)
[2019-02-24 06:38] LABS: BUN Creatinine Ratio 18.5 (10-20); Calcium 9.8 mg/dl (8.5-10.1); Creatinine Clr Calc Pharmacy 22.1 ml/min; Est GFR (African American) 33.3; Est GFR (Non-African American) 28.7; Potassium 4.4 mmol/L (3.5-5.1)
[2019-02-24] MEDS: ASPIRIN 81 MG CHEW PO SCH (08:24)
[2019-02-24] MEDS: ALLOPURINOL 300 MG TAB PO SCH (08:24)
[2019-02-24] MEDS: METOPROLOL TARTRATE 25 MG TAB PO SCH (08:24)
[2019-02-24] MEDS: HYDROCODONE/ACETAMINOPHEN 10/325 TAB PO PRN (08:24)
[2019-02-24] MEDS: DOCUSATE SODIUM/SENNA 50/8.6MG TAB PO SCH (08:25)
[2019-02-24] MEDS: APIXABAN 2.5 MG TAB PO SCH (08:25)
--- NOTE | 2019-02-24 14:07 | Discharge Summary ---
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 Son, [id number] and granddaughter are at bedside. She was awoken from sleep with stabbing substernal and left-sided chest pain, nonradiating, nothing made better, nothing made worse, 8/10, never had anything like this in the past, "if it got any worse was going to jump out the window." "I think I had a heart attack." She denies any recent illness. Denies any associated shortness of breath, palpitations, diaphoresis or nausea. She denies any dizziness, lightheaded, syncope, hemoptysis, nausea, vomiting, diarrhea, change in her bowel or urinary habits. She does have chronic lower extremity lymphedema which she feels currently is worse. Normally her left lower extremity is worse than the right lower extremity; however, currently it is the opposite. She does have pain in her lower extremity secondary to arthritis which makes ambulating difficult. She does live at home alone. Denies any smoking or alcohol use. Occasional use of NSAIDs for pain relief. Family elicits she is a poor eater. Has had significant weight loss over the past 6 months to 1 year. Because of this and her weight loss her blood pressure has been running on the lower side and some medications have been discontinued. Recently seen by nephrology and her lisinopril and potassium segments were discontinued secondary to increased renal function and potassium. In ED patient was significantly hypertensive with BP 169/109, tachycardic with heart rate 113, but otherwise hemodynamically stable. ECG revealed atrial flutter with variable AV block with nonspecific st wave changes. Initial troponin 2.5, stable H&H 10.9 and 33.8, platelet 294, BUN 24, creatinine 1.37, dig 1.5. Chest x-ray revealed large hiatal hernia but no cardiopulmonary abnormality. In ED she received ASA 325. Admission Exam Per Admitting Provider Constitutional: WD/WN, elderly, female vitals as above, NAD, sitting up in bed, pleasant, conversing easily Head: Normocephalic, Atraumatic Eyes: PERRL, conjunctivae normal, anicteric sclerae ENMT: external ear and nose normal, oropharynx normal Neck: trachea midline, no thyromegaly normal visual inspection Respiratory: normal respiratory effort, lungs clear to auscultation, no wheeze, rales, rhonchi. Normal insp/exp effort, no accessory muscle use Cardiovascular: Regular rate, irregular rhythm, no murmur, bilateral significant lymphedema, no erythema, warmth, negative Homans sign Vessels: no JVD or carotid bruit Chest: normal inspection of chest Abdomen: normal bowel sounds, soft, nontender, no hepatosplenomegaly Musculoskeletal: no cyanosis or clubbing, extremities motor strength 5/5 Skin: no rashes, warm and dry normal turgor Neurologic: PERRL, EOMI, accommodation nl, no face palsy, no dysarthria CN's II-XI intact bilaterally and moves all extremities Psychiatric: A+Ox3, euthymic affect Lymphatic: no cervical or axillary lymphadenopathy : deferred Principal Diagnosis NSTEMI (Non-ST elevation NM) Left ventricular dysfunction Acute on Chronic kidney disease Atrial fibrillation Mitral regurgitation Moderate Aortic regurgitation Discharge Exam General: Elderly patient, no acute distress and not ill appearing Eyes: PERRL, conjunctivae normal, EOM intact bilaterally ENMT: External ear and nose normal, oropharynx normal Neck: Normal visual inspection, no tracheal deviation, no swelling noted Respiratory: Normal respiratory effort, no respiratory distress, lungs clear to auscultation, no crackles and no wheezes Cardiovascular: Pulse is irregular. Rate controlled. S1 S2 Gastrointestinal (Abdomen): Abdomen is not distended, soft, non-tender to palpation, no guarding, no palpable hepatosplenomegaly, normal bowel sounds Musculoskeletal: No cyanosis or clubbing, chronic lymphedema, nonpitting. Neurologic: Alert and oriented x 3, No focal weakness, sensation grossly intact Discharge Data Allergies Allergy/AdvReac Type Severity Reaction Status Date / Time atorvastatin Allergy Unknown makes arms Verified 02/20/19 14:49 and shoulders hurt Consultations 02/20/19 15:37 ED Decision to Admit Stat 02/20/19 16:13 Consult Cardiology Routine 02/20/19 17:54 Consult Case Management - Discharge Planning Routine Hospital Course (1) Non-ST elevation NM (NSTEMI): In ED patient was significantly hypertensive with BP 169/109, tachycardic with heart rate 113, but otherwise hemodynamically stable. ECG revealed atrial flutter with variable AV block with nonspecific st wave changes. Initial troponin 2.5, stable H&H 10.9 and 33.8, platelet 294, BUN 24, creatinine 1.37, dig 1.5. Chest x-ray revealed large hiatal hernia but no cardiopulmonary abnormality. Got ASA loading in ER Trop went from 2.5 to 3 to 2.4. Likely NSTEMI. Has been chest pain free since admission Echo revealed reduced LV function 35-40%, LA severely dilated, RA mod dilated, Moderate AR, Severe MR Initially treated with heparin drip Started on aspirin Per review of PCP and manager wound outpatient notes, Lisinopril and potassium were reported to have been discontinued due to increase Cr, hyperkalemia and orthostatic hypotension Hence, despite reduced EF, will not discharge on ACEI due to these Discussed hospital course with patient and daughter in law (2) Atrial fibrillation: Patient with chronic rate controlled atrial fibrillation asymptomatic Presented with a flutter RVR Rates improved with Lopressor IV 5 mg Dig level WNL Continue digoxin HR rate controlled Continue eliquis Discharged on metoprolol succinate (3) Hypertension: Controlled Continue metoprolol and lasix Follow up PCP Recently ACEI was reported to have been discontinued due to increase Cr and hyperkalemia (4) KERON (acute kidney injury): (5) CKD (chronic kidney disease) stage 4, GFR 15-29 ml/min: Baseline cr 1.4-1.5 Cr peaked at 1.72. from 1.37 on admission Got gentle IVF with improvement to 1.59 Avoid nephrotoxic agents Monitor and follow up with C Web Developer (6) Dyslipidemia: Continue statin (7) Gout: Continue allopurinol Patient with gouty arthropathy (8) Lymphedema of both lower extremities: Significant lower extremity lymphedema Teds, SCDs (9) DVT prophylaxis: eliquis Total Time Total Time Spent Total Time Spent (In Minutes): 35 Total Time Includes: Examination of the Patient, Discharge Planning, Medication Reconciliation and Communication With Other Providers Discharge Plan Discharge Items Patient Disposition: Home - Self-Care Reason For Visit: Chest pain Discharge Diagnosis: NSTEMI (Non-ST elevation NM) Left ventricular dysfunction Acute on Chronic kidney disease Atrial fibrillation Mitral regurgitation Condition on Discharge: Good Activity: Resume your previous activity Non-emergency contact: Primary Care Provider, Rigging Engineer and C Web Developer Call non-emergency contact if: you have any medication questions Follow-up/Referrals: Guzman Valenzuela DO [Rigging Engineer] - (Follow up with cardiology in 2 weeks) Jhony Littlejohn MD [Primary Care Provider] - Diet: Heart Healthy Addtl Attending Provider Instructions: Mrs Jauregui. You came to the hospital complaining of chest pain. You were evaluated and found to have Non ST elevation Myocardial infarction. Your Echo showed reduced function with ejection fraction of 35-40%, valvular problems (mitral valve and aortic valve). You required heparin drip for a short time. You were evaluated by the Rigging Engineer. While in the hospital, your Creatinine went up but returned to about your baseline prior to discharge. Review of your Primary Doctor's and C Web Developer note showed that lisinopril was recently stopped due to worsening kidney function and rapid drop in blood pressure. You had abnormal heart rhythm (atrial flutter/atrial fibrillation). Please continue taking the eliquis you were on before. You were started on metoprolol succinate. It is very important you follow up with the Rigging Engineer within 2 weeks of discharge. Please it is also very important you continue to follow up with your manager wound and primary doctor. Please take all your medications as prescribed. It was a pleasure taking care of you. Pending Studies at Discharge: No Stand-Alone Forms: My [facility] [employer], Smoking Cessation Medications and DC Order Prescriptions: New metoprolol succinate 25 mg tablet extended release 24 hr 25 mg PO DAILY Qty: 30 RF: 1 aspirin 81 mg tablet,chewable 81 mg PO DAILY Qty: 30 RF: 1 Continued hydrocodone-acetaminophen 10-325 mg tablet 1 tab PO Q6H PRN (Reason: Pain) RF: 0 allopurinol 300 mg tablet 300 mg PO QAM RF: 0 digoxin 125 mcg (0.125 mg) tablet 125 mcg PO QAM RF: 0 furosemide 20 mg tablet 20 mg PO QAM RF: 0 calcitriol 0.25 mcg capsule 0.25 mcg PO [id number] RF: 0 Eliquis 2.5 mg tablet 2.5 mg PO BID RF: 0 Discontinued ibuprofen [Motrin IB] 200 mg Tablet 200 mg PO Q6H PRN (Reason: Pain) RF: 0 hydrochlorothiazide 25 mg tablet 25 mg PO QAM RF: 0 Discharge Orders: Discharge Order (Routine); Ordered 02/24/19 Ordered By: Dunia Delarosa Admission Data Admit Date/Time: 02/20/19 16:13 Attending Provider: Dunia Delarosa I. Admit Provider: Alessandro Field Primary Care Provider: Jhony Littlejohn Other Providers: Alessandro Field ; Juanito Leggett Other Interventions: Discharge Summary Assessment (RN) Last Done: 02/24/19 12:02 DC Date/Time DO NOT enter until pt leaves facility: 02/24/19 13:36
== END 2019-02-24 13:36 | disposition home or self-care (01) | DRG 281 ==
LOC: ED 14:06 → 2S 16:13 → SUATTDRO 16:13 → 2S 16:47
DX: I48.20 Chronic atrial fibrillation, unspecified; Z88.8 Allergy status to other drugs, medicaments and biological substances; I21.4 Non-ST elevation (NSTEMI) myocardial infarction; M10.9 Gout, unspecified; I16.0 Hypertensive urgency; Z86.718 Personal history of other venous thrombosis and embolism; I89.0 Lymphedema, not elsewhere classified; E87.5 Hyperkalemia; I87.2 Venous insufficiency (chronic) (peripheral); I08.0 Rheumatic disorders of both mitral and aortic valves; N17.9 Acute kidney failure, unspecified; I13.10 Hypertensive heart and chronic kidney disease without heart failure, with stage 1 through stage 4 chronic kidney disease, or unspecified chronic kidney disease; I95.1 Orthostatic hypotension; I48.92 Unspecified atrial flutter; Z79.01 Long term (current) use of anticoagulants; Z79.899 Other long term (current) drug therapy; Z51.81 Encounter for therapeutic drug level monitoring; N25.81 Secondary hyperparathyroidism of renal origin; N18.4 Chronic kidney disease, stage 4 (severe)